=== PATIENT | male | born 1970 | race Caucasian/White ===

== ENCOUNTER 2018-12-22 13:19 | Emergency (ER) | payer OTHER ==
[2018-12-22 13:36] VITALS: BP 112/74
[2018-12-22] MEDS ORDERED: Ketorolac INJ* 30 MG/ML 1 ML VIAL IM ONE (13:49)
--- NOTE | 2018-12-22 13:54 | UC ---
Lower Extremity/Ankle HPI - HPI Summary HPI Summary: No know injury. Pt complains of left heel pain starting about 1 week ago. He does not work, no excessive walking. He does have a history of foot and toe numbness for 10+ years. - History of Current Complaint Chief Complaint: UCLowerExtremity Stated Complaint: LEFT FOOT COMPLAINT Time Seen by Provider: 12/22/18 13:26 Hx Obtained From: Patient Onset/Duration: Gradual Onset, Lasting Days Severity Initially: Mild Severity Currently: Moderate Pain Intensity: 8 Aggravating Factor(s): Ambulation Alleviating Factor(s): Rest, Elevation Able to Bear Weight: Yes - But with severe pain - Allergies/Home Medications Allergies/Adverse Reactions: Allergies Allergy/AdvReac Type Severity Reaction Status Date / Time No Known Allergies Allergy Verified 12/22/18 13:32 PMH/Surg Hx/FS Hx/Imm Hx Previously Healthy: Yes - Surgical History Surgical History: Yes Surgery Procedure, Year, and Place: back surgery. hernia - Family History Known Family History: Positive: Hypertension, Diabetes - Social History Alcohol Use: None Substance Use Type: None Smoking Status (MU): Never Smoked Tobacco - Immunization History Most Recent Influenza Vaccination: [id number] Review of Systems All Other Systems Reviewed And Are Negative: Yes Musculoskeletal: Positive: Other: - Pain left heel, plantar surface not involved Neurological: Positive: Numbness - Has had numbness in feet and toes for 10 years Is Patient Immunocompromised?: No Physical Exam Triage Information Reviewed: Yes Appearance: Well-Appearing, No Pain Distress, Well-Nourished Vital Signs: Initial Vital Signs Temp 98.3 F 12/22/18 13:33 Pulse 70 12/22/18 13:33 Resp 17 12/22/18 13:33 BP 112/74 12/22/18 13:33 Pulse Ox 98 12/22/18 13:33 Vital Signs Reviewed: Yes Musculoskeletal: Positive: Strength Intact, ROM Intact, Other: - Extremely tender on palpation left heel plantar surface. [place]'s intact and non-tender Neurological: Positive: Alert, Muscle Tone Normal Psychological Exam: Normal Lower Extremity Course/Dx - Course Course Of Treatment: Pt given Toradol 30mg IM here with moderate pain relief Left Heel x-ray: Indication: Severe LEFT heel pain for one week. Comparison: No relevant prior exams available on the [facility] for comparison. Technique: 4 views of the LEFT hindfoot obtained. Report: #. Negative for fracture or malalignment. Largely preserved joint spaces. Osteophytosis noted at the second tarsal metatarsal joint. #. Moderate Achilles tendon insertion and plantar fascia origin bone spurs. #. Normal variant os peroneum accessory ossicle. #. Unremarkable soft tissue contours. IMPRESSION: Correlate clinically for potential Achilles tendinitis or plantar fasciitis. - Differential Dx/Diagnosis Provider Diagnosis: Heel spur Discharge ED - Sign-Out/Discharge Documenting (check all that apply): Patient Departure All imaging exams completed and their final reports reviewed: Yes - Discharge Plan Condition: Fair Disposition: HOME Prescriptions: Ibuprofen TAB* [Motrin TAB* 600 MG] 600 mg PO Q8H #21 tab Patient Education Materials: Heel Spur (ED) Referrals: Nik Muller DPM [Doctor of Podiatric Medicine] - Bernardo Henderson PA [Primary Care Provider] - Additional Instructions: warm, moist compresses to your heel 4-6 times a day for 20 minutes each time. Take the Motrin with food, follow up with Dr. Muller in 3-4 days for follow up. - Billing Disposition and Condition Condition: FAIR Disposition: Home - Attestation Statements Provider Attestation: Per institutional requirements, I have reviewed the chart, however, I was not consulted specifically or made aware of this patient by the midlevel provider. I did not personally evaluate, interact with , or disposition this patient.
== END 2018-12-22 14:39 | disposition home or self-care (01) ==
LOC: UCCORT 13:19
DX: M77.52 Other enthesopathy of left foot and ankle (principal); M25.572 Pain in left ankle and joints of left foot
CPT/HCPCS: 99212; G0463; J1885

== ENCOUNTER 2019-03-17 19:34 | Emergency (ER) | payer OTHER ==
[2019-03-17 20:00] VITALS: BP 123/73
--- NOTE | 2019-03-17 20:31 | UC ---
Shoulder Pain HPI - HPI Summary HPI Summary: Patient is a 48yo male presenting with significant other for R neck, shoulder, and clavicle pain x 1 week. Patient denies known injury or trauma. Unsure of what he was doing when the pain began. Describes pain as neck pain that radiates downward into collarbone. Describes it as sharp and intermittent. Also believes his R clavicle to be swollen. Denies bruising. Notes increased pain with shoulder movement and turning head to the right. Denies pain radiating down right arm. Denies numbness and tingling. Denies chest pain, SOB and difficulty breathing. Denies n/v. Denies trying anything for pain relief. - History of Current Complaint Chief Complaint: UCUpperExtremity Stated Complaint: RIGHT SHOULDER/NECK PAIN Hx Obtained From: Patient Onset/Duration: Gradual Onset, Lasting Days Pain Intensity: 10 - Allergies/Home Medications Allergies/Adverse Reactions: Allergies Allergy/AdvReac Type Severity Reaction Status Date / Time No Known Allergies Allergy Verified 03/17/19 19:52 PMH/Surg Hx/FS Hx/Imm Hx - Surgical History Surgical History: Yes Surgery Procedure, Year, and Place: back surgery. hernia - Family History Known Family History: Positive: Hypertension, Diabetes - Social History Alcohol Use: None Substance Use Type: None Smoking Status (MU): Never Smoked Tobacco - Immunization History Most Recent Influenza Vaccination: [id number] Review of Systems All Other Systems Reviewed And Are Negative: Yes Constitutional: Positive: Negative. Negative: Fever, Chills Skin: Positive: Negative. Negative: Bruising Respiratory: Positive: Negative. Negative: Shortness Of Breath, Cough Cardiovascular: Positive: Negative. Negative: Palpitations, Chest Pain Gastrointestinal: Positive: Negative. Negative: Vomiting, Nausea Neurovascular: Positive: Negative Musculoskeletal: Positive: Arthralgia - R clavicle, Edema - R clavicle, Myalgia - R side neck. Negative: Decreased ROM Neurological: Positive: Negative. Negative: Weakness, Paresthesia, Numbness Physical Exam Triage Information Reviewed: Yes Appearance: Well-Appearing, No Pain Distress, Well-Nourished, Obese Vital Signs: Initial Vital Signs Temp 97.8 F 03/17/19 19:53 Pulse 78 03/17/19 19:53 Resp 16 03/17/19 19:53 BP 123/73 03/17/19 19:53 Pulse Ox 100 03/17/19 19:53 Vital Signs Reviewed: Yes Eyes: Positive: Conjunctiva Clear ENT: Positive: Hearing grossly normal Neck: Positive: Supple, No Lymphadenopathy, Other: - no midline tenderness. Negative: Nuchal Rigidity Respiratory Exam: Normal Respiratory: Positive: Lungs clear, Normal breath sounds, No respiratory distress. Negative: Crackles, Rhonchi, Stridor, Wheezing Cardiovascular Exam: Normal Cardiovascular: Positive: RRR, No Murmur, Pulses Normal - strong radial pulses b /l Musculoskeletal: Positive: Strength Intact, ROM Intact - R arm flexion, extension, abduction, and adduction, No Edema, Other: - tenderness to palpation of mid clavicle, right side neck and R pectoralis. increased pain with turning head to right side and with neck extension Neurological: Positive: Alert Psychological: Positive: Age Appropriate Behavior Skin Exam: Normal - no erythema or ecchymosis Diagnostics - Radiology R clavicle Radiology Interpretation Completed By: ED Physician - no acute process Shoulder Course/Dx - Course Course Of Treatment: Patient initial read of radiographs negative. Informed patient he would be notified with any abnormalities after final read tomorrow. I treated with flexeril for neck muscle spasms and instructed to take ibuprofen for pain relief. Instructed to rest, ice, heat as well. Instructed to take flexeril at bedtime as it causes drowsiness. Instructed to follow up with pcp or ortho if pain persists. Patient voiced understanding and agreed with treatment plan. - Differential Dx/Diagnosis Differential Diagnosis/HQI/PQRI: Sprain, Strain, Other - muscle spasms Provider Diagnosis: Pain of right clavicle, Neck pain on right side Discharge ED - Sign-Out/Discharge Documenting (check all that apply): Patient Departure All imaging exams completed and their final reports reviewed: No - Discharge Plan Condition: Stable Disposition: HOME Prescriptions: Cyclobenzaprine TAB* [Flexeril 10 MG TAB*] 10 mg PO BEDTIME PRN #4 tab PRN Reason: Spasms - Neck Patient Education Materials: Shoulder Pain (ED), Acute Neck Pain (ED) Referrals: [facility] [Outside] - If Needed Bernardo Henderson PA [Primary Care Provider] - If Needed Additional Instructions: As discussed, your radiograph was reviewed by the provider that treated you tonight. It will be read by a radiologist tomorrow morning. If there is a finding other than that discussed with you today, you will receive a call from a care provider. Take flexeril at bedtime as prescribed. This may make you drowsy, so do not drive while taking the medication. Take ibuprofen as directed for pain relief. You may also ice/heat the area. Follow up with your primary care provider or the orthopedic referral listed below if pain persists. - Billing Disposition and Condition Condition: STABLE Disposition: Home - Attestation Statements Provider Attestation: I was available for consult. This patient was seen by the YUE. The patient was not presented to , seen by or examined by nm -Beatriz Rodriguez MD
[2019-03-17] MEDS ORDERED: Cyclobenzaprine TAB* 10 MG PO ONE (21:02)
--- NOTE | 2019-03-18 10:56 | ED ---
Progress - Progress Note Progress Note: final read xray clavicle: NAD Course/Dx - Diagnoses Provider Diagnoses: Pain of right clavicle, Neck pain on right side Discharge ED - Sign-Out/Discharge Documenting (check all that apply): Patient Departure All imaging exams completed and their final reports reviewed: Yes - Discharge Plan Condition: Stable Disposition: HOME Prescriptions: Cyclobenzaprine TAB* [Flexeril 10 MG TAB*] 10 mg PO BEDTIME PRN #4 tab PRN Reason: Spasms - Neck Patient Education Materials: Shoulder Pain (ED), Acute Neck Pain (ED) Referrals: [facility] [Outside] - If Needed Bernardo Henderson PA [Primary Care Provider] - If Needed Additional Instructions: As discussed, your radiograph was reviewed by the provider that treated you tonight. It will be read by a radiologist tomorrow morning. If there is a finding other than that discussed with you today, you will receive a call from a care provider. Take flexeril at bedtime as prescribed. This may make you drowsy, so do not drive while taking the medication. Take ibuprofen as directed for pain relief. You may also ice/heat the area. Follow up with your primary care provider or the orthopedic referral listed below if pain persists. - Billing Disposition and Condition Condition: STABLE Disposition: Home
== END 2019-03-17 21:16 | disposition home or self-care (01) ==
LOC: UCCORT 19:34
DX: M54.2 Cervicalgia (principal); M25.511 Pain in right shoulder
CPT/HCPCS: 99212; A9270-GY; G0463